=== PATIENT | female | born 1930 | race Caucasian/White ===

== ENCOUNTER 2018-02-13 05:32 | Inpatient (IN) | payer MEDICARE, BC ==
[2018-02-13 06:08] LABS: #Monocytes 0.8 thou/uL (0.11-0.59); #Neutrophils 13.2 thou/uL (1.40-6.50); %Basophils 0.1 % (0.0-1.0); %Eosinophils 0.1 % (0.0-10.0); %Lymphocytes 6.7 % (21.0-51.0); Hemoglobin 15.1 g/dL (12.0-16.0); Mean Corpuscular HGB CONC 32.8 g/dL (32.0-36.0); Mean Corpuscular Volume 91.5 fL (78.0-98.0); Mean Platelet Volume 9.2 fL (7.4-10.4); Platelet Count 180 thou/uL (130-400); Red Blood Cell (RBC) Count 5.02 mill/uL (4.20-5.40)
[2018-02-13 06:21] LABS: ALT (SGPT) 19 U/L (8-55); AST (SGOT) 34 U/L (5-34); Albumin 4.2 g/dL (3.4-4.8); Alkaline Phosphatase 80 U/L (40-150); Anion Gap 14 mmol/L (10-20); BUN (Urea Nitrogen) 22 mg/dL (9.8-20.1); Bilirubin, Total 0.9 mg/dL (0.2-1.2); CK (CPK) 508 U/L (29-168); Calc. Creatinine Clearance 0 mL/min (70-130); Calcium 10.4 mg/dL (7.8-10.44); Carbon Dioxide 25 mmol/L (23-31); Chloride 106 mmol/L (98-107); Estimated GFR-MDRD 65; Globulin 3.1 g/dL (2.4-3.5); Glucose 127 mg/dL (83-110); Magnesium 1.8 mg/dL (1.6-2.6); Potassium 3.7 mmol/L (3.5-5.1); Protein, Total 7.3 g/dL (6.0-8.3); Sodium 141 mmol/L (136-145)
[2018-02-13 06:28] LABS: CKMB 16.1 ng/mL (0-6.6); Troponin I 0.367 ng/mL (< 0.028)
[2018-02-13 07:10] LABS: Bilirubin Negative (Negative); Blood, Urine Small (Negative); Clarity CLEAR (Clear); Glucose, Urine (Dipstick) Negative (Negative); Leukocyte Negative (Negative); Nitrite Negative (Negative); Protein, Urine (Dipstick) Negative (Neg-Trace); Specific Gravity, Urine 1.013 (1.002-1.036); Urobilinogen 0.2 mg/dL (0.2-1.0); pH, Urine 5.5 (5.0-9.0)
[2018-02-13 07:13] LABS: Bacteria/HPF None Seen HPF (None Seen); Hyaline Casts/LPF 0-3 HYALINE CAST LPF (0-3 Hyaline); Pathc Cast-AUWi Flag 0.14 (0-2.49); Squamous Epithelial 0-3 HPF (0-3); WBC/HPF None Seen HPF (0-3)
--- NOTE | 2018-02-13 09:13 | RAD ---
LUMBAR SPINE 3 VIEWS: Date: 02/13/18 PROVIDED CLINICAL HISTORY: Trauma. FINDINGS: Five non-rib bearing lumbar-type vertebral bodies are present. Lumbar alignment appears normal. Verte bral body heights appear preserved. Prominent multilevel lumbar degenerative changes are seen. IMPRESSION: No radiographic evidence for an acute osseous abnormality. If there is persistent clinical concern, c onservative management and follow-up imaging are advised. POS: OFF
--- NOTE | 2018-02-13 09:15 | RAD ---
SINGLE VIEW OF THE CHEST: Comparison: None. History: Shortness of breath, chest pain. FINDINGS: Single view of the chest shows an enlarged cardiomediastinal silhouette. There appears to be a small left pleural effusion. Increased interstitial markings are present. Biapical pleural thickening is se en. IMPRESSION: Cardiomegaly and small left pleural effusion. POS: [facility]
[2018-02-13 09:57] LABS: Troponin I 0.371 ng/mL (< 0.028)
[2018-02-13 10:23] VITALS: BMI 25.9
[2018-02-13 12:47] LABS: Critical Call Chem Troponin I RESULT DECREASING; Troponin I 0.311 ng/mL (< 0.028)
--- NOTE | 2018-02-13 18:07 | PDOC.PN ---
- Subjective Encounter Start Date: 02/13/18 Encounter Start Time: 18:06 Subjective: nsg notes rev, josue ovn, pt does not want to -: "move to fast" and thinks she should stay in the hospital for a few -: days to "slowly get better" - Objective Vital Signs & Weight: Vital Signs (12 hours) Temp Pulse Resp BP Pulse Ox 02/13/18 15:33 98 F 100 16 127/92 H 95 02/13/18 10:05 98.5 F 86 16 163/89 H 95 02/13/18 10:00 96 Weight Weight 155 lb 13.869 oz I&O: 02/12/18 02/13/18 02/14/18 06:59 06:59 06:59 Intake Total 480 Balance 480 Result Diagrams: 02/13/18 05:57 02/13/18 05:57 Phys Exam - Physical Examination Constitutional: NAD lying in hospital bed HEENT: PERRLA, moist MMs Respiratory: no wheezing, no rales, no rhonchi, clear to auscultation bilateral Cardiovascular: RRR, no significant murmur, no rub Gastrointestinal: soft, positive bowel sounds Neurological: moves all 4 limbs Psychiatric: normal affect, A&O x 3 [id number] Dx/Plan - Plan * mechanical fall * by hx appears to be mechanical. ROS entirely negative for any recent illness or new atypical changes to health. at baseline, pt states she lives with her daughter but is predominantly independent in her ADLs, all the way to up yesterday. the only change was difficulty getting up from off the floor after falling last night. * PT, OT, out of bed to sitting in a chair TID * * elev troponin, unclear sig * appreciate cardiology consultation and input * will need to continue on telemetry, ECHO in AM * * diet: as rachel * activity: OOB TID * dvt ppx * Review of Systems - Medications/Allergies Allergies/Adverse Reactions: Allergies Allergy/AdvReac Type Severity Reaction Status Date / Time No Known Allergies Allergy Verified 02/13/18 13:35 Medications: Current Medications Aspirin (Ecotrin) 81 mg PO DAILY [facility] Metoprolol Tartrate (Lopressor) 25 mg PO BID [facility]
--- NOTE | 2018-02-13 20:38 | CON ---
DATE OF CONSULTATION: 02/13/2018 CARDIOLOGY CONSULTATION INDICATION FOR CONSULTATION: An 87-year-old female with abnormal cardiac enzymes. HISTORY OF PRESENT ILLNESS: This very unfortunate 87-year-old female who lives with her daughter. S he was up last night and fell in the kitchen and daughter did not hear her. She was on the floor for several hours. Apparently, she then was brought to the emergency room. Apparently no fractures, bu t she was admitted due to abnormal cardiac enzymes. It would still be considered indeterminate with a troponin I of 0.367, which then increased up to 0.37 and back down to 0.311 with MB of 16.1 with CK 508. She does have a history of chronic atrial fibrillation. She has been seen by Dr. Montez in the office most recently in 12/2016 approximately one year ago at that time and continues to do so no w. She has no chest pain. She denies any previous cardiac history except for the atrial fibrillatio n, which has been intermittent, but now appears to most likely chronic. She had been given prescript ion Eliquis in the past, but she did not take the medication. She is not taking any medications at t his time for anticoagulation that I can determine. She said previously she was given medications; ho wever, she said that the medications made her feel sick and she stopped taking the medicines. There is no indication that she had a stroke, but when she fell last night she said she had a problem with one of the tiles in the floor in the kitchen when she fell and she does not appear to have any signif icant trauma associated with the fall. She did fall apparently backwards, but did not hit her head. Otherwise, from a cardiac standpoint, she denies any chest pain or any shortness of breath. PAST MEDICAL HISTORY: Significant for atrial fibrillation, which was intermittent, but may now be ch ronic. She has a history of hypertension. She has had a history of hysterectomy in the past. ALLERGIES: None. FAMILY HISTORY: Noncontributory. SOCIAL HISTORY: She continues to live with her daughter independently. She has no history of tobacc o abuse, but does have some alcohol use. She drinks 4-5 drinks a day apparently. REVIEW OF SYSTEMS: What I can determine is 12-point review of systems is relatively unremarkable denise ecially for someone of this age. She denied any new respiratory changes, any GI or complaints. N o lower extremity complaints. No edema and had no complaints of syncope in the past. PHYSICAL EXAMINATION: GENERAL: Reveals an elderly, very pleasant female, somewhat hard of hearing. VITAL SIGNS: Her blood pressure is 163/89, earlier it was 142/95, O2 saturation 95%. She is afebril e, respiratory rate is about 16, heart rate anywhere from the 80s-100 with atrial fibrillation. Ther e were no acute ST segment changes noted. HEENT: Shows head to be normocephalic and atraumatic. Carotid pulses are present. I did not hear a ny bruits. CHEST: Clear to auscultation without rales, rhonchi or wheezing. CARDIOVASCULAR: Exam reveals an irregularly irregular rhythm. She does have a very soft systolic mu rmur at the apex. Otherwise, there were no significant abnormalities noted. ABDOMEN: Soft and nontender. Positive bowel sounds are present. EXTREMITIES: Showed no clubbing, cyanosis or edema. Pedal pulses are slightly decreased, but are pr esent. NEUROLOGIC: The patient appears to be actually relatively intact for someone of her age. She did no t get out of bed to ambulate, but she does have what appears to be normal strength and normal tone. SKIN: Warm and dry. IMAGING DATA: EKG as noted shows atrial fibrillation with rapid ventricular response, but no acute c hanges were noted at this time. IMPRESSION: 1. Atrial fibrillation with rapid ventricular response which may be the cause of the elevated tropon in I and we will need to control the heart rate. We will start low dose of beta blockers if she will take the medications. She also was on Eliquis in the past, but due to her history of falls, this ma y be somewhat dangerous as actually placing her on anticoagulation and may suggest a baby aspirin. 2. History of hypertension. We will also need to have medical management to control the blood press ure better and again a beta delfino may be an option for her and may also control the heart rate as w ell as the blood pressure. She also has a slight elevation of the BNP which is 664. Her previous ec hocardiogram was in 12/2016 which showed some evidence of elevated right-sided pressures with moderat e to severe mitral valve regurgitation, but she did have normal left ventricular systolic function. She did have dilatation of the left and right atrium which makes me think somewhat suspicious that sh e may have diastolic dysfunction. Also, an indication for mild elevation of the BNP. We will need t o adjust her medications accordingly for the blood pressure and the heart rate for her atrial fibrill ation. I believe the echo is still pending. We will evaluate this also. Further care of the patien t will be by Dr. Montez when he visits with the patient tomorrow.
[2018-02-13] MEDS: Metoprolol Tartrate 25 MG TAB PO SCH (21:38)
[2018-02-14 04:48] LABS: #Basophils 0.1 thou/uL (0.0-0.2); #Eosinphils 0.1 thou/uL (0.0-0.7); #Lymphocytes 2.2 thou/uL (1.20-3.40); #Monocytes 0.8 thou/uL (0.11-0.59); #Neutrophils 6.7 thou/uL (1.40-6.50); %Basophils 0.7 % (0.0-1.0); %Eosinophils 1.1 % (0.0-10.0); %Lymphocytes 22.1 % (21.0-51.0); %Monocytes 7.7 % (0.0-10.0); %Neutrophils 68.4 % (42.0-75.0); Hemoglobin 13.6 g/dL (12.0-16.0); Mean Corpuscular HGB CONC 31.8 g/dL (32.0-36.0); Mean Corpuscular Hemoglobin 29.3 pg (27.0-31.0); Mean Corpuscular Volume 92.2 fL (78.0-98.0); Mean Platelet Volume 10.1 fL (7.4-10.4); Platelet Count 164 thou/uL (130-400); Red Blood Cell (RBC) Count 4.64 mill/uL (4.20-5.40); White Blood Cell (WBC) Count 9.8 thou/uL (4.8-10.8)
[2018-02-14 05:09] LABS: Anion Gap 11 mmol/L (10-20); BUN (Urea Nitrogen) 19 mg/dL (9.8-20.1); Calc. Creatinine Clearance 63 mL/min (70-130); Calcium 9.1 mg/dL (7.8-10.44); Carbon Dioxide 23 mmol/L (23-31); Chloride 108 mmol/L (98-107); Estimated GFR-MDRD 78; Glucose 99 mg/dL (83-110); Potassium 3.8 mmol/L (3.5-5.1); Sodium 138 mmol/L (136-145)
[2018-02-14] MEDS: Aspirin 81 mg Enteric Coated Tablet PO SCH (10:05)
[2018-02-14] MEDS: Metoprolol Tartrate 25 MG TAB PO SCH ×2 (10:05→21:13)
[2018-02-14] MEDS ORDERED: Acetaminophen 325 MG TAB PO PRN (10:08)
[2018-02-14] MEDS ORDERED: Ondansetron ODT 4 MG TAB PO PRN (10:08)
[2018-02-14] MEDS ORDERED: Ondansetron PF 4 MG/2 ML Vial IVP PRN (10:08)
[2018-02-14] MEDS ORDERED: Senokot S 8.6-50 MG TAB PO PRN (10:08)
--- NOTE | 2018-02-14 17:25 | PDOC.PN ---
- Subjective Encounter Start Date: 02/14/18 Encounter Start Time: 12:00 Patient seen and examined for Afib with RVR. No CP/SOB. No new complaints. No overnight events - Objective MAR Reviewed: Yes Vital Signs & Weight: Vital Signs (12 hours) Temp Pulse Pulse Pulse Resp BP BP 02/14/18 15:31 98.7 F 88 20 02/14/18 11:49 98.7 F 83 20 02/14/18 11:12 84 86 144/79 H 141/84 H 02/14/18 08:45 02/14/18 08:37 87 94 166/97 H 166/95 H 02/14/18 07:52 98.4 F 87 16 BP Pulse Ox 02/14/18 15:31 129/69 93 L 02/14/18 11:49 141/89 H 92 L 02/14/18 11:12 02/14/18 08:45 93 L 02/14/18 08:37 02/14/18 07:52 153/84 H 93 L Weight Weight 155 lb 13.869 oz I&O: 02/13/18 02/14/18 02/15/18 06:59 06:59 06:59 Intake Total 720 Balance 720 Result Diagrams: 02/14/18 04:16 02/14/18 04:15 EKG Reviewed by me: Yes (Tele SR) Phys Exam - Physical Examination Constitutional: NAD Respiratory: no wheezing, no rhonchi Cardiovascular: RRR, no rub Gastrointestinal: soft, non-tender, positive bowel sounds Musculoskeletal: no edema Dx/Plan - Plan DVT proph w/SCDs 1. Afib with RVR 2. Gen weakness/Mech fall 3. Elevated troponins due to demand ischemia 4. HTN PLAN: Await Echo Await EP input Cont Metoporolol On ASA AM labs Review of Systems - Review of Systems Respiratory: negative: Cough, Dry, Shortness of Breath, Hemoptysis, SOB with Excertion, Pleuritic Pain, Sputum, Wheezing Cardiovascular: negative: chest pain, palpitations, orthopnea, paroxysmal nocturnal dyspnea, edema, light headedness, other - Medications/Allergies Allergies/Adverse Reactions: Allergies Allergy/AdvReac Type Severity Reaction Status Date / Time No Known Allergies Allergy Verified 02/13/18 13:35 Medications: Current Medications Acetaminophen (Tylenol) 650 mg PO Q4H PRN PRN Reason: Headache/Fever/Mild Pain (1-3) Apixaban (Eliquis) 5 mg PO BID [facility] Aspirin (Ecotrin) 81 mg PO DAILY [facility] Last Admin: 02/14/18 10:05 Dose: 81 mg Famotidine (Pepcid) 20 mg PO BID [facility] Metoprolol Tartrate (Lopressor) 25 mg PO BID [facility] Last Admin: 02/14/18 10:05 Dose: 25 mg Ondansetron HCl (Zofran Odt) 4 mg PO Q6H PRN PRN Reason: Nausea/Vomiting Ondansetron HCl (Zofran) 4 mg IVP Q6H PRN PRN Reason: Nausea/Vomiting Senna/Docusate Sodium (Senokot S) 2 tab PO BID PRN PRN Reason: Constipation
[2018-02-14] MEDS: Famotidine 20 MG TAB PO SCH (21:13)
[2018-02-14] MEDS: Apixaban 5 MG TAB PO SCH (21:13)
--- NOTE | 2018-02-14 23:53 | CON ---
DATE OF CONSULTATION: 02/14/2018 ELECTROPHYSIOLOGY CONSULTATION REFERRING PHYSICIAN: Dr. William Montez. REASON FOR CONSULTATION: Atrial fibrillation, oral anticoagulation guidance. HISTORY OF PRESENT ILLNESS: Ms. Jacques is an 87-year-old woman originally from [place], who resides with her daughter. She has a history of dementia, prior CVA , and hypertension. She also has another daughter that still resides in [place] , whom she used to live with before coming to [place]. She has a long history of medical noncompliance. She is very resistant to medications, since part of the mindset from the culture and pantry where she was raised according to her daughter. Reportedly, her daughter who lives with her, heard her calling in the night went into her room and found her lying on the floor in her bedroom. It is possible that the patient fell and landed on the floor, but there was minimal disruption in the bedroom that would be consistent with falling or losing balance. Ms. Jacques has been asked her daughter to go and get the leftovers out of the microwave that she had finished earlier that day. They called 911 concern for a fall and she came to the hospital for further evaluation. She has a history of chronic atrial fibrillation in the scene, Dr. Montez in the past, most recently in December of last year. She has been prescribed oral anticoagulation with Eliquis, multiple times and recommended strongly encouraged to take this for stroke prophylaxis, but she has refused stating that it makes her feel sick and that she does not like to take medications. All exams have not indicated any trauma from the potential fall that she possibly injured. She is in chronic atrial fibrillation and had a slight elevation in her troponins. Medications at this point has been attributed to rapid ventricular response. She was started on beta-blockers, but there is a significant concern with her and anticoagulation with potential fall and her medical noncompliance prompting EP consult. Ms. Jacques is an elderly woman. She is extremely hard of hearing. She has a baseline of dementia. She is good at reading lips. She denies frequent falls at home but is very concerned about falls. She denies heart racing or palpitations or chest pain. She is a poor historian. REVIEW OF SYSTEMS: A 12-point review of systems is conducted as best as possible given her mental status. She denied any heart racing or palpitation, breathing issues, recent strokes, or vomiting, or diarrhea. PAST MEDICAL HISTORY: 1. Chronic atrial fibrillation. 2. Dementia. 3. Hypertension. PAST SURGICAL HISTORY: Hysterectomy. ALLERGIES: None. HOME MEDICATIONS: None (medications have been prescribed, but she is not taking any medications). FAMILY HISTORY: Noncontributory. SOCIAL HISTORY: Positive dementia, resides with her daughter, but reportedly independent with ADLs. Slight gait instability and occasionally will use a cane. Complete medical noncompliance. Positive for continued alcohol intake. Reportedly, 4-5 drinks a day by chart review. OBJECTIVE: VITAL SIGNS: Most recent vital signs 98.7 degrees Fahrenheit, pulse 88, blood pressure 129/69, respirations 20, oxygen is 93% on room air. GENERAL: Ms. Jacques is well-groomed and well-nourished woman who appears fairly robust for her age. She is extremely hard of hearing but is adequate at reading lips. She is somewhat disoriented and a poor historian. HEENT: She is normocephalic, atraumatic. Her sclerae are anicteric. EOMs are intact. Oral mucosa is moist and pink. NECK: Supple without jugular venous distention. CHEST: Clear to auscultation bilaterally. CARDIOVASCULAR: Heart rate is irregularly irregular. PMI is nondisplaced. ABDOMEN: Soft and nontender without palpable masses. Hepatojugular reflex is negative. EXTREMITIES: Warm and dry to touch without clubbing, cyanosis, or edema. NEUROLOGIC: Does not show any new focal deficits. Gait was not assessed. LABORATORY DATABASE: Hematology was reviewed, is unremarkable. Chemistry: Potassium 3.8, creatinine 0.71. Troponins peaked at 0.37. BNP 664. Echocardiogram on 02/14/2018, EF 55%-60%, mildly dilated left atrium. Telemetry and EKGs were all personally reviewed and reflect atrial fibrillation with ventricular rates in the 80-90 beat per minute range, largely controlled ventricular rate. IMPRESSION: 1. Persistent chronic atrial fibrillation. 2. CHADS2-VASc score of 6 based on advanced age, female gender, prior stroke, and hypertension previously prescribed oral anticoagulation, but has refused. 3. Possible fall. 4. Preserved LVEF 55%-60%. RECOMMENDATIONS: Certainly, presents a challenging situation of Ms. Jacques, as she has shown medical noncompliance with oral anticoagulation in the past. This is related to her desires to off medications or part of her confusion and dementia that remains unclear. That being said, after discussing with her daughter and the patient, I am concerned that Ms. Jacques would not be compliant with oral anticoagulation before, during, and after a Watchman implantation, placing her at even further risk for an embolic event potentially devastating stroke. The daughter is not convinced that the family would be able to continue to get her to take her medications faithfully even for a short amount of time. All of that aside, Ms. Jacques is quite uninterested in any further medical procedures and especially those that would involve a trip at [place] to be completed within overnight hospital stay. At this point, I recommend continued oral anticoagulation with Eliquis 5 mg b.i.d. if she will agree to take this for at least aspirin and if she is willing to take that. Thank you for allowing us to participate in the care of this patient. If she is interested in further discussing a Watchman, she would need to be started on Eliquis and we can discuss this either in the hospital or also as an outpatient for further discussion and arrangement. The family has enough influence to keep her compliant with medications, and the patient is very independent and strong-willed. Ms. Jacques is largely uninterested in having additional medical procedures done, especially that involved traveling to [place]. If they do change her mind, we are happy to see them as an outpatient and offer further guidance for oral anticoagulation. At this point, I think whatever she is willing to take, we will offer at least some benefit. If this is just aspirin 325 mg daily in the right direction, but ideally she would be on Eliquis 5 mg b.i.d. This is a challenging situation and with her dementia, it is unclear if it is confusion or noncompliance, but hopefully we can get her at least trying to take her Eliquis as directed. SALLYD
[2018-02-15] MEDS: Aspirin 81 mg Enteric Coated Tablet PO SCH (12:22)
[2018-02-15] MEDS: Metoprolol Tartrate 25 MG TAB PO SCH ×2 (12:22→20:12)
[2018-02-15] MEDS: Famotidine 20 MG TAB PO SCH ×2 (12:22→20:35)
[2018-02-15] MEDS: Apixaban 5 MG TAB PO SCH ×2 (12:22→20:35)
--- NOTE | 2018-02-15 17:12 | PDOC.PN ---
- Subjective Encounter Start Date: 02/15/18 Encounter Start Time: 09:00 Patient seen and examined for Afib/Gen weakness. No new complaints. No overnight events - Objective Resuscitation Status: Resuscitation Status DNR:Do Not Resuscitate MAR Reviewed: Yes Vital Signs & Weight: Vital Signs (12 hours) Temp Pulse Resp BP Pulse Ox 02/15/18 16:00 98.5 F 87 16 138/74 95 02/15/18 12:00 98.7 F 84 20 123/79 96 02/15/18 08:40 97.7 F 90 18 139/76 97 Weight Weight 155 lb 13.869 oz I&O: 02/14/18 02/15/18 02/16/18 06:59 06:59 06:59 Intake Total 720 960 Balance 720 960 Result Diagrams: 02/14/18 04:16 02/14/18 04:15 Phys Exam - Physical Examination Constitutional: NAD Respiratory: no wheezing, no rhonchi Cardiovascular: no rub, irregular Gastrointestinal: soft, non-tender, positive bowel sounds Musculoskeletal: no edema Neurological: moves all 4 limbs Dx/Plan - Plan 1. Afib with RVR - rate controlled 2. Gen weakness/Mech fall 3. Elevated troponins due to demand ischemia 4. 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 PLAN: Started on Anticoag Cont Metoporolol On ASA AM labs Rehab eval Review of Systems - Review of Systems Respiratory: negative: Cough, Dry, Shortness of Breath, Hemoptysis, SOB with Excertion, Pleuritic Pain, Sputum, Wheezing Cardiovascular: negative: chest pain, palpitations, orthopnea, paroxysmal nocturnal dyspnea, edema, light headedness, other - Medications/Allergies Allergies/Adverse Reactions: Allergies Allergy/AdvReac Type Severity Reaction Status Date / Time No Known Allergies Allergy Verified 02/13/18 13:35 Medications: Current Medications Acetaminophen (Tylenol) 650 mg PO Q4H PRN PRN Reason: Headache/Fever/Mild Pain (1-3) Apixaban (Eliquis) 5 mg PO BID [facility] Last Admin: 02/15/18 12:22 Dose: Not Given Aspirin (Ecotrin) 81 mg PO DAILY [facility] Last Admin: 02/15/18 12:22 Dose: Not Given Famotidine (Pepcid) 20 mg PO BID [facility] Last Admin: 02/15/18 12:22 Dose: Not Given Metoprolol Tartrate (Lopressor) 25 mg PO BID [facility] Last Admin: 02/15/18 12:22 Dose: Not Given Ondansetron HCl (Zofran Odt) 4 mg PO Q6H PRN PRN Reason: Nausea/Vomiting Ondansetron HCl (Zofran) 4 mg IVP Q6H PRN PRN Reason: Nausea/Vomiting Senna/Docusate Sodium (Senokot S) 2 tab PO BID PRN PRN Reason: Constipation
[2018-02-15] MEDS ORDERED: Acetaminophen 325 MG TAB PO PRN (17:13)
[2018-02-15 21:03] LABS: #Basophils 0.1 thou/uL (0.0-0.2); #Eosinphils 0.1 thou/uL (0.0-0.7); #Lymphocytes 1.7 thou/uL (1.20-3.40); #Monocytes 0.9 thou/uL (0.11-0.59); %Basophils 0.8 % (0.0-1.0); %Eosinophils 0.9 % (0.0-10.0); %Lymphocytes 15.9 % (21.0-51.0); %Monocytes 8.7 % (0.0-10.0); %Neutrophils 73.7 % (42.0-75.0); Hemoglobin 14.3 g/dL (12.0-16.0); Mean Corpuscular HGB CONC 32.8 g/dL (32.0-36.0); Mean Corpuscular Hemoglobin 30.4 pg (27.0-31.0); Mean Corpuscular Volume 92.8 fL (78.0-98.0); Mean Platelet Volume 9.4 fL (7.4-10.4); Platelet Count 161 thou/uL (130-400); Red Blood Cell (RBC) Count 4.71 mill/uL (4.20-5.40); White Blood Cell (WBC) Count 10.9 thou/uL (4.8-10.8)
[2018-02-15 21:22] LABS: Anion Gap 13 mmol/L (10-20); BUN (Urea Nitrogen) 17 mg/dL (9.8-20.1); Calc. Creatinine Clearance 61 mL/min (70-130); Calcium 9.5 mg/dL (7.8-10.44); Carbon Dioxide 22 mmol/L (23-31); Chloride 106 mmol/L (98-107); Estimated GFR-MDRD 74; Glucose 152 mg/dL (83-110); Magnesium 1.7 mg/dL (1.6-2.6); Potassium 4.1 mmol/L (3.5-5.1); Sodium 137 mmol/L (136-145)
[2018-02-16] MEDS ORDERED: Artificial Tears 18 DROP/0.9 ML EA EYE PRN (10:55)
[2018-02-16] MEDS ORDERED: Triple Antibiotic Oint 1 GM Packet TOP SCH (11:45)
[2018-02-16] MEDS: Metoprolol Tartrate 25 MG TAB PO SCH ×2 (11:49→21:23)
[2018-02-16] MEDS: Apixaban 5 MG TAB PO SCH ×2 (11:58→21:23)
[2018-02-16] MEDS: Aspirin 81 mg Enteric Coated Tablet PO SCH (11:58)
[2018-02-16] MEDS: Famotidine 20 MG TAB PO SCH ×3 (11:58→21:26)
--- NOTE | 2018-02-16 12:54 | RAD ---
RIGHT FEMUR 3 VIEWS: HISTORY: Pain, fall. COMPARISON: None. FINDINGS: Severe degenerative change of the right hip with large subcortical cyst formation. The femur appears to be osteopenic. No displaced fracture of the femur. Mild calcifications of the knee. IMPRESSION: 1. Osteopenia. No displaced fracture is appreciated. 2. 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 POS: [facility]
--- NOTE | 2018-02-16 14:31 | PDOC.PN ---
- Subjective Encounter Start Date: 02/16/18 Encounter Start Time: 09:30 Patient seen and examined for Afib. Refusing most of her meds. Rt lateral thigh pain+ No new complaints. No overnight events - Objective Resuscitation Status: Resuscitation Status DNR:Do Not Resuscitate MAR Reviewed: Yes Vital Signs & Weight: Vital Signs (12 hours) Temp Pulse Pulse Resp BP BP Pulse Ox 02/16/18 12:00 98.1 F 80 18 123/70 93 L 02/16/18 10:50 87 133/79 02/16/18 08:30 92 L 02/16/18 07:53 97.7 F 100 16 175/90 H 92 L 02/16/18 03:35 98.8 F 102 H 20 167/108 H 94 L Weight Weight 155 lb 13.869 oz I&O: 02/15/18 02/16/18 02/17/18 06:59 06:59 06:59 Intake Total 960 Balance 960 Result Diagrams: 02/15/18 20:55 02/15/18 20:55 EKG Reviewed by me: Yes (Tele Afib - rate controlled.) Phys Exam - Physical Examination Constitutional: NAD Respiratory: no wheezing, no rhonchi Cardiovascular: no rub, irregular Gastrointestinal: soft, non-tender, positive bowel sounds Musculoskeletal: no edema Neurological: moves all 4 limbs Psychiatric: A&O x 3 Dx/Plan - Plan DVT proph w/SCDs 1. Afib with RVR - rate controlled 2. Gen weakness/Mech fall 3. Elevated troponins due to demand ischemia 4. 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 PLAN: Patient refused all of her meds today - She understands the risk of embolic stroke Cont Metoprolol and other meds as below AM labs Rehab eval pending Review of Systems - Review of Systems Respiratory: negative: Cough, Dry, Shortness of Breath, Hemoptysis, SOB with Excertion, Pleuritic Pain, Sputum, Wheezing Cardiovascular: negative: chest pain, palpitations, orthopnea, paroxysmal nocturnal dyspnea, edema, light headedness, other - Medications/Allergies Allergies/Adverse Reactions: Allergies Allergy/AdvReac Type Severity Reaction Status Date / Time No Known Allergies Allergy Verified 02/13/18 13:35 Medications: Current Medications Acetaminophen (Tylenol) 650 mg PO Q4H PRN PRN Reason: Headache/Fever/Mild Pain (1-3) Last Admin: 02/16/18 09:02 Dose: 650 mg Acetaminophen (Tylenol) 650 mg PO Q4H PRN PRN Reason: Headache/Fever or Mild Pain Apixaban (Eliquis) 5 mg PO BID [facility] Last Admin: 02/16/18 11:58 Dose: Not Given Artificial Tears (Tears Naturale) 0 drop EA EYE PRN PRN PRN Reason: Dry Eyes Aspirin (Ecotrin) 81 mg PO DAILY [facility] Last Admin: 02/16/18 11:58 Dose: Not Given Famotidine (Pepcid) 20 mg PO BID [facility] Last Admin: 02/16/18 11:58 Dose: Not Given Metoprolol Tartrate (Lopressor) 25 mg PO BID [facility] Last Admin: 02/16/18 11:49 Dose: 25 mg Neomycin/Polymyxin/Bacitracin (Triple Antibiotic) 1 gm TOP TID [facility] Ondansetron HCl (Zofran Odt) 4 mg PO Q6H PRN PRN Reason: Nausea/Vomiting Ondansetron HCl (Zofran) 4 mg IVP Q6H PRN PRN Reason: Nausea/Vomiting Senna/Docusate Sodium (Senokot S) 2 tab PO BID PRN PRN Reason: Constipation
[2018-02-16] MEDS: Triple Antibiotic Oint 1 GM Packet TOP SCH ×2 (17:30→21:23)
[2018-02-17] MEDS: Metoprolol Tartrate 25 MG TAB PO SCH ×2 (09:40→21:01)
[2018-02-17] MEDS: Triple Antibiotic Oint 1 GM Packet TOP SCH ×3 (09:42→21:06)
[2018-02-17] MEDS: Artificial Tear Sol 15 ML BOT EA EYE SCH ×3 (09:43→21:01)
[2018-02-17] MEDS: Apixaban 5 MG TAB PO SCH ×2 (09:44→21:02)
[2018-02-17] MEDS: Aspirin 81 mg Enteric Coated Tablet PO SCH (09:44)
--- NOTE | 2018-02-17 12:28 | PDOC.PN ---
- Subjective Encounter Start Date: 02/17/18 Encounter Start Time: 09:00 Patient seen and examined for Afib. No new complaints. No overnight events - Objective Resuscitation Status: Resuscitation Status DNR:Do Not Resuscitate MAR Reviewed: Yes Vital Signs & Weight: Vital Signs (12 hours) Temp Pulse Resp BP Pulse Ox 02/17/18 07:42 97.9 F 84 16 149/98 H 93 L 02/17/18 03:52 99.1 F 89 16 159/100 H 91 L Weight Weight 155 lb 13.869 oz Result Diagrams: 02/15/18 20:55 02/15/18 20:55 EKG Reviewed by me: Yes (Tele Afib - rate controlled.) Phys Exam - Physical Examination Constitutional: NAD Respiratory: no wheezing, no rhonchi Cardiovascular: no rub, irregular Gastrointestinal: soft, non-tender, positive bowel sounds Musculoskeletal: no edema Neurological: moves all 4 limbs Dx/Plan - Plan DVT proph w/SCDs 1. Afib with RVR - rate controlled 2. Gen weakness/Mech fall 3. Elevated troponins due to demand ischemia 4. 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 PLAN: Patient still refusing all of her meds and labs except Metoprolol - She understands the risk of embolic stroke Cont meds as below Rehab eval pending Stable for dc Review of Systems - Review of Systems Respiratory: negative: Cough, Dry, Shortness of Breath, Hemoptysis, SOB with Excertion, Pleuritic Pain, Sputum, Wheezing Cardiovascular: negative: chest pain, palpitations, orthopnea, paroxysmal nocturnal dyspnea, edema, light headedness, other - Medications/Allergies Allergies/Adverse Reactions: Allergies Allergy/AdvReac Type Severity Reaction Status Date / Time No Known Allergies Allergy Verified 02/13/18 13:35 Medications: Current Medications Acetaminophen (Tylenol) 650 mg PO Q4H PRN PRN Reason: Headache/Fever/Mild Pain (1-3) Last Admin: 02/16/18 09:02 Dose: 650 mg Acetaminophen (Tylenol) 650 mg PO Q4H PRN PRN Reason: Headache/Fever or Mild Pain Apixaban (Eliquis) 5 mg PO BID [facility] Last Admin: 02/17/18 09:44 Dose: Not Given Artificial Tears (Tears Renewed 15ml Bottle) 0 drop EA EYE TID [facility] Last Admin: 02/17/18 09:43 Dose: 2 drop Aspirin (Ecotrin) 81 mg PO DAILY [facility] Last Admin: 02/17/18 09:44 Dose: Not Given Metoprolol Tartrate (Lopressor) 25 mg PO BID [facility] Last Admin: 02/17/18 09:40 Dose: 25 mg Neomycin/Polymyxin/Bacitracin (Triple Antibiotic) 1 gm TOP TID [facility] Last Admin: 02/17/18 09:42 Dose: 1 gm Ondansetron HCl (Zofran Odt) 4 mg PO Q6H PRN PRN Reason: Nausea/Vomiting Ondansetron HCl (Zofran) 4 mg IVP Q6H PRN PRN Reason: Nausea/Vomiting Senna/Docusate Sodium (Senokot S) 2 tab PO BID PRN PRN Reason: Constipation
[2018-02-18] MEDS: Artificial Tear Sol 15 ML BOT EA EYE SCH ×3 (09:00→20:52)
[2018-02-18] MEDS: Apixaban 5 MG TAB PO SCH ×2 (09:01→20:52)
[2018-02-18] MEDS: Triple Antibiotic Oint 1 GM Packet TOP SCH ×3 (09:01→20:53)
[2018-02-18] MEDS: Aspirin 81 mg Enteric Coated Tablet PO SCH (09:01)
[2018-02-18] MEDS: Metoprolol Tartrate 50 MG TAB PO SCH ×2 (09:01→20:52)
--- NOTE | 2018-02-18 21:24 | PDOC.PN ---
- Subjective Encounter Start Date: 02/18/18 Encounter Start Time: 09:00 Patient seen and examined for Afib. No new complaints. No overnight events - Objective Resuscitation Status: Resuscitation Status DNR:Do Not Resuscitate MAR Reviewed: Yes Vital Signs & Weight: Vital Signs (12 hours) Temp Pulse Pulse Pulse Resp BP BP 02/18/18 16:00 99.5 F 81 20 02/18/18 11:54 98.1 F 76 20 02/18/18 09:53 76 82 142/83 H 122/80 BP Pulse Ox 02/18/18 16:00 129/81 92 L 02/18/18 11:54 133/72 94 L 02/18/18 09:53 Weight Weight 155 lb 13.869 oz I&O: 02/17/18 02/18/18 02/19/18 06:59 06:59 06:59 Intake Total 1440 Balance 1440 Result Diagrams: 02/15/18 20:55 02/15/18 20:55 EKG Reviewed by me: Yes (Tele Afib) Phys Exam - Physical Examination Constitutional: NAD Respiratory: no wheezing, no rhonchi Cardiovascular: no rub, irregular Gastrointestinal: soft, non-tender, positive bowel sounds Musculoskeletal: no edema Neurological: moves all 4 limbs Dx/Plan - Plan DVT proph w/SCDs 1. Afib with RVR - rate controlled 2. Gen weakness/Mech fall 3. Elevated troponins due to demand ischemia 4. HTN - uncontrolled. 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 PLAN: Patient refusing all meds and labs except PO Metoprolol - She understands the risk of embolic stroke Increase Metoprolol dose Cont meds as below DC to Rehab if ok with Cardio Stable for dc Review of Systems - Review of Systems Respiratory: negative: Cough, Dry, Shortness of Breath, Hemoptysis, SOB with Excertion, Pleuritic Pain, Sputum, Wheezing Cardiovascular: negative: chest pain, palpitations, orthopnea, paroxysmal nocturnal dyspnea, edema, light headedness, other - Medications/Allergies Allergies/Adverse Reactions: Allergies Allergy/AdvReac Type Severity Reaction Status Date / Time No Known Allergies Allergy Verified 02/13/18 13:35 Medications: Current Medications Acetaminophen (Tylenol) 650 mg PO Q4H PRN PRN Reason: Headache/Fever/Mild Pain (1-3) Last Admin: 02/16/18 09:02 Dose: 650 mg Acetaminophen (Tylenol) 650 mg PO Q4H PRN PRN Reason: Headache/Fever or Mild Pain Apixaban (Eliquis) 5 mg PO BID [facility] Last Admin: 02/18/18 20:52 Dose: 5 mg Artificial Tears (Tears Renewed 15ml Bottle) 0 drop EA EYE TID [facility] Last Admin: 02/18/18 20:52 Dose: 1 drop Aspirin (Ecotrin) 81 mg PO DAILY [facility] Last Admin: 02/18/18 09:01 Dose: Not Given Metoprolol Tartrate (Lopressor) 50 mg PO BID [facility] Last Admin: 02/18/18 20:52 Dose: 50 mg Neomycin/Polymyxin/Bacitracin (Triple Antibiotic) 1 gm TOP TID [facility] Last Admin: 02/18/18 20:53 Dose: 1 gm Ondansetron HCl (Zofran Odt) 4 mg PO Q6H PRN PRN Reason: Nausea/Vomiting Ondansetron HCl (Zofran) 4 mg IVP Q6H PRN PRN Reason: Nausea/Vomiting Senna/Docusate Sodium (Senokot S) 2 tab PO BID PRN PRN Reason: Constipation
[2018-02-19] MEDS: Metoprolol Tartrate 50 MG TAB PO SCH (08:01)
[2018-02-19] MEDS: Apixaban 5 MG TAB PO SCH ×2 (08:01→20:39)
[2018-02-19] MEDS: Triple Antibiotic Oint 1 GM Packet TOP SCH ×3 (08:02→20:39)
[2018-02-19] MEDS: Artificial Tear Sol 15 ML BOT EA EYE SCH ×3 (08:02→20:38)
[2018-02-19] MEDS: Aspirin 81 mg Enteric Coated Tablet PO SCH (10:20)
[2018-02-19] MEDS: Metoprolol Tartrate 25 MG TAB PO SCH (20:39)
--- NOTE | 2018-02-19 23:37 | PDOC.PN ---
- Subjective Encounter Start Date: 02/19/18 Encounter Start Time: 16:00 Patient seen and examined for Afib. No new complaints. No overnight events - Objective Resuscitation Status: Resuscitation Status DNR:Do Not Resuscitate MAR Reviewed: Yes Vital Signs & Weight: Vital Signs (12 hours) Temp Pulse Resp BP Pulse Ox 02/19/18 20:58 98.2 F 85 20 131/83 94 L Weight Weight 155 lb 13.869 oz I&O: 02/18/18 02/19/18 02/20/18 06:59 06:59 06:59 Intake Total 1440 Balance 1440 Result Diagrams: 02/15/18 20:55 02/15/18 20:55 Phys Exam - Physical Examination Constitutional: NAD Respiratory: no wheezing, no rhonchi Cardiovascular: RRR, no rub Gastrointestinal: soft, non-tender, positive bowel sounds Musculoskeletal: no edema Neurological: moves all 4 limbs Dx/Plan - Plan DVT proph w/SCDs 1. Afib with RVR - rate controlled 2. Gen weakness/Mech fall 3. Elevated troponins due to demand ischemia 4. HTN - uncontrolled. 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 PLAN: Change Metoprolol to 37.5 mg BID with Eliquis Cont meds as below DC to Rehab once bed available Stable for dc Review of Systems - Review of Systems Respiratory: negative: Cough, Dry, Shortness of Breath, Hemoptysis, SOB with Excertion, Pleuritic Pain, Sputum, Wheezing Cardiovascular: negative: chest pain, palpitations, orthopnea, paroxysmal nocturnal dyspnea, edema, light headedness, other - Medications/Allergies Allergies/Adverse Reactions: Allergies Allergy/AdvReac Type Severity Reaction Status Date / Time No Known Allergies Allergy Verified 02/13/18 13:35 Medications: Current Medications Acetaminophen (Tylenol) 650 mg PO Q4H PRN PRN Reason: Headache/Fever/Mild Pain (1-3) Last Admin: 02/16/18 09:02 Dose: 650 mg Acetaminophen (Tylenol) 650 mg PO Q4H PRN PRN Reason: Headache/Fever or Mild Pain Apixaban (Eliquis) 5 mg PO BID [facility] Last Admin: 02/19/18 20:39 Dose: 5 mg Artificial Tears (Tears Renewed 15ml Bottle) 0 drop EA EYE TID [facility] Last Admin: 02/19/18 20:38 Dose: 1 drop Aspirin (Ecotrin) 81 mg PO DAILY [facility] Last Admin: 02/19/18 10:20 Dose: Not Given Metoprolol Tartrate (Lopressor) 37.5 mg PO BID [facility] Last Admin: 02/19/18 20:39 Dose: 37.5 mg Neomycin/Polymyxin/Bacitracin (Triple Antibiotic) 1 gm TOP TID [facility] Last Admin: 02/19/18 20:39 Dose: 1 gm Ondansetron HCl (Zofran Odt) 4 mg PO Q6H PRN PRN Reason: Nausea/Vomiting Ondansetron HCl (Zofran) 4 mg IVP Q6H PRN PRN Reason: Nausea/Vomiting Senna/Docusate Sodium (Senokot S) 2 tab PO BID PRN PRN Reason: Constipation
[2018-02-20] MEDS: Apixaban 5 MG TAB PO SCH (08:47)
[2018-02-20 08:48] VITALS: TEMP 98.1
[2018-02-20] MEDS: Aspirin 81 mg Enteric Coated Tablet PO SCH (08:48)
[2018-02-20] MEDS: Metoprolol Tartrate 25 MG TAB PO SCH (08:48)
[2018-02-20] MEDS: Triple Antibiotic Oint 1 GM Packet TOP SCH ×2 (08:51→16:20)
[2018-02-20] MEDS: Artificial Tear Sol 15 ML BOT EA EYE SCH ×2 (08:54→16:20)
[2018-02-20 15:03] VITALS: BP 151/87
--- NOTE | 2018-02-20 23:12 | DIS ---
DATE OF ADMISSION: 02/13/2018 DATE OF DISCHARGE: 02/20/2018 DISCHARGE DISPOSITION: Inpatient rehabilitation. ALLERGIES: No known drug allergies. The patient was seen on the day of discharge. Denies any new complaints. No chest pain, shortness o f breath, palpitations reported. DISCHARGE MEDICATIONS: Aspirin 81 mg daily, Eliquis 5 mg b.i.d., Tylenol as needed, Artificial Tears 3 times a day, Triple Antibiotic ointment 3 times a day, Senokot S as needed, metoprolol 37.5 mg twi ce a day. INPATIENT CONSULTANTS: 1. Cardiology, William Montez M.D. 2. Electrophysiology, Kris Ly M.D. DIAGNOSTIC TESTS: 1. Echocardiogram showed left ventricular ejection fraction of 55%-60% with [id number] candy l regurgitation, mild aortic regurgitation and mild to moderate tricuspid regurgitation. 2. Lumbar spine x-ray was negative for acute fractures or dislocation. Right femur x-ray was negati ve for acute fractures or dislocation. Chest x-ray was negative for acute findings except for cardio megaly and small left pleural effusion. 3. WBC on admission of 15. Repeat WBC next day was 9.8. 4. Maximum troponin 0.371. Maximum CK-MB 16.1. BRIEF HOSPITAL COURSE: The patient is an 87-year-old female with hypertension who presented to the [facility] with a mechanical fall. She was found to have atrial fibrillation with rapid ventricular res ponse with heart rate in 130s. She denied any loss of consciousness. Please refer to the history an d physical for further details. The patient was admitted to the hospital with a diagnosis of atrial fibrillation with rapid ventricul ar response. She was also found to have elevated troponins. The patient was evaluated by Cardiology , Dr. William Montez. She was started on low dose beta blockers. Later on, she was seen by electroph ysiology, Dr. Ly. Anticoagulation with Eliquis was recommended. Most of the time, the patient ref used all of her medications. However, over the last 24 hours, the patient started taking Eliquis. S he, however, refuses aspirin. She also refused labs in the last 3-4 days of the hospitalization. Sh e appears stable for discharge to inpatient rehabilitation. FINAL DIAGNOSES: 1. Generalized weakness with mechanical fall. 2. Atrial fibrillation with rapid ventricular response, rate controlled. The patient has been start ed on anticoagulation with beta blockers. 3. Elevated troponin secondary to demand ischemia. 4. Hypertension. 5. [id number] tricuspid regurgitation. 6. [id number] mitral regurgitation. 7. Plan of care was discussed with the patient in detail. She stated understanding. Total time coordinating the discharge of this patient was 37 minutes.
== END 2018-02-20 18:25 | DRG 309 ==
LOC: ERS 05:32 → 2SE 09:50 → T4-A 02-18 21:47
PROVIDERS: ADMIT Internal Medicine; ATTEND Internal Medicine
DX: I48.1 Persistent atrial fibrillation (principal); I24.8 Other forms of acute ischemic heart disease; I10 Essential (primary) hypertension; I08.1 Rheumatic disorders of both mitral and tricuspid valves; F03.90 Unspecified dementia, unspecified severity, without behavioral disturbance, psychotic disturbance, mood disturbance, and anxiety; Z86.73 Personal history of transient ischemic attack (TIA), and cerebral infarction without residual deficits; Z91.14 Patient's other noncompliance with medication regimen
CPT/HCPCS: 36415; 51701; 71045; 72100; 80048; 80053; 81003; 81015; 82553; 83605; 83735; 83880; 84484; 85025; 93005; 93306; 96360; 96361; A4353; G8978-GP-CM; G8979-GP-CK; G8987-GO-CL; G8988-GO-CJ